=== PATIENT | male | born 1960 | race Caucasian/White ===

== ENCOUNTER 2024-03-23 14:01 | Emergency (ER) | payer SELFPAY ==
[2024-03-23 14:34] VITALS: BP 168/72; PULSE 74; RESP 18; TEMP 36.8; O2SAT 95; BMI 30.9
--- NOTE | 2024-03-23 14:45 | XR_ITS ---
Examination: Left femur 2 views Technique one AP lateral left femur 2 views Exam date and time: March 23, 2024 1554 hours INDICATIONS: Injury to leg 4 days ago, leg pain. FINDINGS: No hip fracture or hip dislocation Shaft of the femur intact IMPRESSION: No acute fracture
--- NOTE | 2024-03-23 14:45 | XR_ITS ---
Examination: Tibia-Fibula, left , 2 views Technique: Tibia-fibula AP lateral 2 views Date and time of exam: Airway 4 2024 1554 hours INDICATIONS: Injury to the lower leg 4 days ago with lower leg pain. FINDINGS: No fracture or dislocation No foreign body IMPRESSION: No fracture or dislocation
--- NOTE | 2024-03-23 14:48 | XR_ITS ---
Examination: Duplex scan of the lower extremity, unilateral left Date and time of exam: March 23, 2024 1509 hours INDICATIONS: Left leg pain and swelling beginning 5 days ago post injury to the leg Technique: Duplex scan of the extremity veins using B-mode/grayscale imaging and Doppler spectral analysis and color flow Attention is directed to internal echogenicity, compression and augmentation involving these veins, color flow assessment, spectral analysis Findings: Major deep venous structures in the extremity demonstrate normal course and caliber. There is no evidence of deep vein thrombosis. Normal color flow and spectral analysis Impression: Negative for DVT.. 7.7 x 1.7 x 4.7 cm probable hematoma in the soft tissue at the area of concern left lower anterior medial lower leg Consider elective MRI lower leg without contrast follow-up to assess for tendon rupture or muscle tear
--- NOTE | 2024-03-23 14:48 | EDNOTE_ITS ---
Lower Extremity Injury RME/HPI General Chief Complaint: Extremity Injury, Lower Stated Complaint: Left knee and left lower buttock Time Seen by Provider: 03/23/24 14:06 Arrival date/time: 03/23/24 14:01 63 year old male present emergency room with c/o of left lower leg last week while at work LOCATION: lower leg SEVERITY: Symptoms are described as being severe with limitations on activities of daily living QUALITY: Symptoms are described as being dull or achy CONTEXT: pt report while at work a huge rock rolled and slam into his leg DURATION/TIMING: The symptoms started approximately last week ago and have been constant this then. ASSOCIATED SYMPTOMS: The patient is unable to identify any other associated symptoms. MODIFYING FACTORS: The patient is unable to identify any alleviating or aggravating symptoms. PERTINENT ROS: no fevers, no headache, no neck or chest pain, no unexplained nausea or vomiting, no focal neurological deficits REVIEW OF SYSTEMS: See History of Present Illness - with the exception of those mentioned in the history of present illness, all other systems reviewed and r eported as negative GENERAL: In general the patient is awake, interactive, in an emergency department rney. HEAD/EYES/EARS/NOSE/THROAT: normo-cephalic, atraumatic, mucus membranes are moist, anicteric, palpebral conjunctiva is pink, trachea is midline. CARDIOVASCULAR: regular rate and regular rhythm, no murmurs, heart sounds are not distant, strong pulses in all four extremities that are equal and symmetric bilateral upper and lower extremities, normal capillary refill. CHEST/PULMONARY: normal chest rise and fall, good air movement, clear to auscultation bilaterally, normal inspiratory to expiratory ratios without evidence of respiratory distress. NECK: No midline/Paraspinal tenderness, no step off ROM/Strenght intact No Kernig and bruzinski sign. No trauma ABDOMEN: soft, not tender, no masses appreciated BACK: normal range of motion without pain. NEUROLOGICAL: cranio-facial features are symmetric, moves all four extremities equally without obvious limitations or weakness. EXTREMITY: + left upper buttucks/lower lower posterior and anterior leg bruising + healing abrasion below knee. no tenderness to palpation over the long bones or large joints of the bilateral upper extremities, no joint swelling, and no peripheral edema. SKIN: warm, dry, well-perfused, no jaundice, no rash, no telangiectasias or petechia. PSYCH: calm, cooperative, no evidence of psychosis or agitation Related Data Allergies Allergy/AdvReac Type Severity Reaction Status Date / Time No Known Allergies Allergy Verified 07/06/22 16:53 Course Course Course Narrative: Plan xray to rule to fracture us to rule DVT tetanus Patient? injured the left lower leg? Patient noted bruising and swelling N/V intact.? Full ROM.? US: no dvt, + hematoma, xray no fracture,? Clinical exam most consistent with ecchymosis and likely resolving hematoma. Given her benign exam and presentation the threshold for further work-up in the ED has not been breached at this time in my clinical judgment. Quality Measures none Orders Category Date Time Status US venous doppler LE LT Stat Exams 03/23/24 14:48 Completed XR femur LT 2V Stat Exams 03/23/24 14:45 Completed XR tibia fibula LT 2V Stat Exams 03/23/24 14:45 Completed Tetanus, Diphtheria Toxoids/Pf [Tenivac-Adult] Med 03/23/24 14:45 Discontinued 0.5 ml IMI .ONCE ONE traMADol HCL [Ultram] Med 03/23/24 14:45 Discontinued 50 mg PO X1 ONE Reevaluation(s) Reevaluation #1: pt able to ambulated, advised pt to follow up with PCP/workmen comp for restriction and modification Vital Signs Vital signs: Vital Signs Temperature 98.3 F 03/23/24 14:34 Pulse Rate 74 03/23/24 14:34 Respiratory Rate 18 03/23/24 14:34 Blood Pressure 168/72 H 03/23/24 14:34 Pulse Oximetry (%) 95 03/23/24 14:34 Oxygen Delivery Method Room Air 03/23/24 14:34 Extremity Injury, Lower Patient data External records reviewed:: [facility] previous records Clinical information provided by:: patient Social determinants that could affect healthcare access:: none Patient has the following chronic illnesses:: none How is presenting disease/condition affected by chronic disease/condition?: no chronic disease Evaluation data The following diagnostics were reviewed and interpreted by me:: radiology exam(s) Lab and/or radiology exams considered but not ordered:: none Interpretation Summary: xray: FINDINGS: No fracture or dislocation No foreign body IMPRESSION: No fracture or dislocation xrayNo hip fracture or hip dislocation Shaft of the femur intact IMPRESSION: No acute fracture us :Impression: Negative for DVT.. 7.7 x 1.7 x 4.7 cm probable hematoma in the soft tissue at the area of concern left lower anterior medial lower leg Consider elective MRI lower leg without contrast follow-up to assess for tendon rupture or muscle tear Medications / Prescriptions Medications or Prescriptions considered but not ordered:: none Medication administrations:: Medication Administration History Discontinued Medications Tetanus/Diphtheria Toxoids (Tetanus,Diphtheria Toxoids/Pf (Adult) 0.5 Ml Syringe) 0.5 ml IMi .ONCE ONE Stop: 03/23/24 14:46 Last Admin: 03/23/24 15:02 Dose: 0.5 ml Documented By: ESPERANZA Tramadol HCl (Tramadol Hcl 50 Mg Tablet) 50 mg PO X1 ONE Stop: 03/23/24 14:46 Last Admin: 03/23/24 15:01 Dose: 50 mg Documented By: ESPERANZA as state above Consultations Consultation(s) initiated? (list below): No Diagnosis Extremity Injury, Lower Differential Diagnosis: fracture of femur and other (contusion, abrasion, dvt, leg fracture) Most likely diagnosis given after review of the tests above:: leg hematoma Admission Indicated Admission indicated?: not indicated Admission Request Was there a request for admission?: No Disposition Plan Disposition Plan: Discharge Discharge Attestation Discharge Attestation: The patient and all family members were given an opportunity to ask questions and understood the discharge instructions. Discharge instructions specifically effects, indications for sooner follow up or return to the emergency department, and the expected course of current diagnosis. Patient condition: Stable Discharge Plan Plan Patient Disposition: HOME (Self Care) Health Concerns: Follow up with workmen comp as directed Return to ED if symptoms worsen Prescriptions/Referrals Referrals: No Primary/Family,Physician [Primary Care Provider] - In 1 week Problem List Clinical Impression: Hematoma of left lower extremity Patient/Caregiver Discharge Instructions Education Materials: ED Contusion, Lower Extremity Print Language: Guamanian Stand Alone Forms: Kristi Award Info., Work/School Release, Patient Portal Info Letter
[2024-03-23] MEDS: traMADol HCL 50 MG TABLET PO (15:01)
[2024-03-23] MEDS: TETANUS,DIPHTHERIA TOXOIDS/PF (ADULT) 0.5 ML SYRINGE IMi (15:02)
== END 2024-03-23 17:25 | disposition home or self-care (01) ==
PROVIDERS: Emergency Provider Emergency Medicine; Referring Provider Emergency Medicine
DX: S80.12XA Contusion of left lower leg, initial encounter (principal); S79.922A Unspecified injury of left thigh, initial encounter; X58.XXXA Exposure to other specified factors, initial encounter; Z23 Encounter for immunization
CPT/HCPCS: 73552; 73590; 90471; 90714; 93971; 99283; 99284; A9270

== ENCOUNTER 2024-04-29 09:00 | Day surgery (SDC) | payer OTHER, SELFPAY ==
[2024-04-28 06:44] VITALS: BMI 30.8
--- NOTE | 2024-04-28 07:00 | EKG_ITS ---
[facility] Test Date: 2024-04-28 Pat Name: CHIDI SALCEDO Department: Room: - Gender: Male Bsa/Aml Compliance Officer: RT STUDENT : 1960 Requested By: Ye Carcamo Order Number: [id number] Reading MD: Ye Carcamo Measurements Intervals [place] Rate: 53 P: 33 IA: 195 QRS: 62 QRSD: 133 T: 54 QT: 461 QTc: 436 Interpretive Statements SINUS BRADYCARDIA RIGHT BUNDLE BRANCH BLOCK [120+ ms QRS DURATION, UPRIGHT V1, 40+ ms S IN I/aVL/V4/V5/V6] No previous ECG available for comparison /store/S0/[id number].pdf
[2024-04-28 10:14] LABS: Alanine Aminotransferase 24 U/L (10-49); Albumin, Serum 4.4 gm/dL (3.4-4.8); Albumin/Globulin Ratio 1.6 (1.2-2.2); Alkaline Phosphatase 108 U/L (46-116); Anion Gap 7 (7-16); Aspartate Amino Transferase 21 U/L (0-34); BUN/Creatinine Ratio 15 Ratio (12-20); Bilirubin,Total 0.6 mg/dL (0.3-1.2); Blood Urea Nitrogen 12 mg/dL (9-23); Calcium 9.1 mg/dL (8.3-10.6); Calcium (Corrected) 9.1 mg/dL (8.5-10.1); Carbon Dioxide 26.6 mMol/L (20.0-31.0); Chloride 105 mMol/L (98-107); Creatinine (Component) 0.8 mg/dL (0.6-1.3); Estimated Creatinine Clearance 107.8 mL/min (>60); Globulin 2.8 gm/dL (2.3-3.5); Glucose 129 mg/dL (74-106); Osmolality,Calculated 279 (275-295); Potassium 4.2 mMol/L (3.4-5.1); Sodium 139 mMol/L (136-145); Total Protein 7.2 gm/dL (5.7-8.2); eGFR > 60 See Note
[2024-04-28 11:15] LABS: Basophils # (Auto) 0.1 Thou/mm3 (0.0-0.2); Basophils % (Auto) 1 % (0-2.5); Eosinophils # (Auto) 0.2 Thou/mm3 (0.0-0.5); Eosinophils % (Auto) 2 % (0-10); Hematocrit 44.1 % (41.0-53.0); Hemoglobin 14.3 g/dL (13.5-16.0); Immature Granulocytes % (Auto) 0 % (0-0); Immature Granulocytes Auto 0.03 Thou/mm3 (0.00-0.00); Lymphocytes # (Auto) 1.2 Thou/mm3 (1.0-4.8); Lymphocytes % (Auto) 12 % (10-50); Mean Corpuscular HGB Conc 32.4 g/dl (31.0-37.0); Mean Corpuscular Hemoglobin 28.2 pg (25.0-35.0); Mean Corpuscular Volume 87 fL (80-100); Monocytes % (Auto) 11 % (0-12); Neutrophils # (Auto) 6.9 Thou/mm3 (1.8-7.7); Neutrophils % (Auto) 74 % (37-80); Nucleated Red Blood Cell % 0 /100 WBC (0); Platelet Count 284 Thou/mm3 (140-440); RDW Standard Deviation 45.7 fL (35.1-43.9); Red Blood Count 5.07 Miln/mm3 (4.50-5.90); White Blood Count 9.4 Thou/mm3 (3.8-10.6)
--- NOTE | 2024-04-28 14:40 | SUR.PREOP ---
Pt sees cardiology at [facility] [phone], they only have a answering machine that says leave a detail message and someone will call you back within [address] Info [address] Dean.
[2024-04-29] VITALS (8 sets, daily range): BP systolic 136–173; BP diastolic 76–85; PULSE 50–58; RESP 15–20; TEMP 36.6–36.7; O2SAT 96–100; BMI 31.1
[2024-04-29] MEDS: RINGERS LACTATED 1000 ML 1,000 ML 20 ML IV (10:24)
--- NOTE | 2024-04-29 11:28 | PD.SUROPNT ---
Date of Procedure 04/29/24 Pre Op Diagnosis Left leg hematoma Post Op Diagnosis Left leg deep intramuscular hematoma Procedure Incision and drainage of left leg hematoma Findings Small amount of intramuscular hematoma on the anterior surface of the left leg Procedure Description Patient brought into the operating room in supine position. After administration of monitored anesthesia care, patient's left leg prepped and draped in standard surgical manner. Patient was noted to have some swelling and fluctuance on anterior and proximal aspect of the left leg. After administration of local anesthesia an approximately 3 cm incision was made and dissection was deepened into soft tissue. There was no evidence of subcutaneous hematoma noted. The fascia was opened, there was small amount of intramuscular hematoma that was evacuated. The wound was washed and irrigated with warm saline and hemostasis achieved using electrocautery. Incision was closed with simple interrupted sutures using 2-0 nylon. Sterile pressure dressings applied. Patient tolerated procedure well. He was breathing spontaneously and without difficulty and was transferred to postanesthesia care in stable condition. Instruments, needles and sponge counts were reported to be correct x 2. Anesthesia MAC and local Pathology / specimen None Estimated Blood Loss 2 Condition Stable Disposition PACU Surgeon Ye Carcamo MD Surgical Staff Operation Date: 04/29/24 11:15 Case Staff SHEET CUTTING OPERATOR: Marta Sarkar RN First Assistant: Suzi Agustin
--- NOTE | 2024-04-29 12:02 | SUR.PHASEII ---
1125: Pt received in [facility] via gurney. Report from Brigid RN and Tova REAVESCA, Pt groggy, but awake. Resp even, unlabored. VS stable. Dressing to left lower leg dry, clean, intact. Bilateral pedal pulses strong, regular. Denies pain. 1150: Pt more alert. VS stable. Dressing remains dry, clean, intact. Bilateral pedal pulses strong, regular. Denies pain. Sitting up tolerating po fluids with no difficulty swallowing and no n/v.
--- NOTE | 2024-04-29 12:49 | SUR.PHASEII ---
1223: Pt fully awake, oriented x3. VS stable. Dressing remains dry, clean, intact. Denies pain. Pt dressed and assisted to restroom. Ambulation steady. 1230: Pt and stated understanding of discharge instructions. Pt also instructed to pickle sorter his prescription at [facility]. Pt discharged from [facility] instable condition.
== END 2024-04-29 12:30 | disposition home or self-care (01) ==
PROVIDERS: Anesthesiology; PCP Family Medicine; Referring Provider Surgery; Visit Provider Surgery
PROC: (CPT 27603; principal; 2024-04-29 11:00)
DX: S80.12XA Contusion of left lower leg, initial encounter (principal); W22.8XXA Striking against or struck by other objects, initial encounter; Y93.9 Activity, unspecified; Y92.89 Other specified places as the place of occurrence of the external cause; Y99.0 Civilian activity done for income or pay; Z01.810 Encounter for preprocedural cardiovascular examination
CPT/HCPCS: 27603; 36415; 80053; 85025; 93005; A4217; A4649; J0690; J1100; J2405; J2704; J3010; J3490; J7120